=== PATIENT | female | born 1965 | race Caucasian/White ===

== ENCOUNTER 2017-08-12 07:14 | Observation (INO) | payer BC ==
[2017-08-10 16:31] LABS: BASOPHILS # (AUTO) 0.1 (0.0-0.1); EOSINOPHILS # (AUTO) 0.2 (0.0-0.4); EOSINOPHILS % 2.5 % (0.0-6.0); HEMATOCRIT 44.4 % (34.2-44.1); HEMOGLOBIN 15.1 g/dL (12.0-16.0); LYMPHOCYTES # (AUTO) 1.7 (1.0-3.2); LYMPHOCYTES % 23.5 % (18.0-39.1); MEAN CORPUSCULAR VOLUME 88.3 fL (81-99); MONOCYTES # (AUTO) 0.4 (0.2-0.8); MONOCYTES % 6.1 % (4.4-11.3); NEUTROPHILS # (AUTO) 4.8 (2.1-6.9); NEUTROPHILS % 66.6 % (38.7-80.0); PLATELET COUNT 342 x10e3/uL (140-360); RED BLOOD COUNT 5.03 x10e6/uL (3.6-5.1); RED CELL DISTRIBUTION WIDTH 12.7 % (11.7-14.4)
[2017-08-10 16:40] LABS: INR 1.09; PROTHROMBIN TIME 13.3 seconds (11.9-14.5)
[2017-08-10 16:41] LABS: PARTIAL THROMBOPLASTIN TIME 26.9 seconds (23.8-35.5)
[2017-08-10 16:45] LABS: ANION GAP 12.8 mmol/L (8-16); BLOOD UREA NITROGEN 17 mg/dL (7-26); BUN/CREATININE RATIO 18 (6-25); CALCIUM 9.8 mg/dL (8.4-10.2); CARBON DIOXIDE 25 mmol/L (22-29); CHLORIDE 103 mmol/L (98-107); CREATININE, SERUM 0.92 mg/dL (0.57-1.11); EST GLOMERULAR FILTRATION RATE > 60 ML/MIN (60-); GLUCOSE 142 mg/dL (74-118); POTASSIUM 3.8 mmol/L (3.5-5.1); SODIUM 137 mmol/L (136-145)
--- NOTE | 2017-08-10 20:52 | Diagnostic Imaging Report ---
PROCEDURE: Frontal and lateral views of the chest. COMPARISON: None. INDICATIONS: pre-op, denies chest complaints FINDINGS: Lines/tubes: None. Lungs: The lungs are well inflated and clear. There is no evidence of pneumonia or pulmonary edema. Pleura: There is no pleural effusion or pneumothorax. Heart and mediastinum: The heart and the mediastinum are normal. Bones: No acute bony abnormality. IMPRESSION: 1. No acute cardiopulmonary abnormalities. Jorge L Bates M.D. Dictated by: Jorge L Bates M.D. on 08/10/2017 at 16:43 Electronically approved by: Jorge L Bates M.D. on 08/10/2017 at 16:43
[~2017-08-12] VITALS: Ht 172.7 cm; Wt 121.6 kg
[~2017-08-12 07:14] MED LIST: ACETAMINOPHEN 1000 MG/100 ML 100 ML IV ONE; BACITRACIN 50,000 UNIT VIAL ONE; BUPIVACAINE 0.5%/EPI 30 ML SDV INJ ONE; FLECAINIDE ACE100 MG PO; LIDOCAINE HCL (LTA) 4 ML SOLN ONE; METOPROLOL SUCC50 MG PO; PRADAXA150 MG PO; THROMBIN FOR SOLN 5,000 UNIT VIAL ONE
[2017-08-12] MEDS ORDERED: GELATIN SPONGE 12-7MM ONE ×2 (07:31→08:00)
[2017-08-12] MEDS ORDERED: CEFAZOLIN SOD 2 GM/D5W 50ML 50 ML IV ONE (08:10)
[2017-08-12] MEDS: LACTATED RINGER'S 1,000 ML IV SCH ×2 (10:41→19:01)
[2017-08-12] MEDS ORDERED: ZOLPIDEM TARTRATE 5 MG TAB PO PRN (10:45)
[2017-08-12] MEDS ORDERED: MAGNESIUM/ALUMINUM/SIMETHICONE 30 ML UDC PO PRN (10:45)
[2017-08-12] MEDS ORDERED: PROMETHAZINE HCL (IM) 25 MG/ML VIAL IM PRN (10:45)
[2017-08-12] MEDS ORDERED: ONDANSETRON HCL INJ 2 MG/ML VIAL IV PRN (10:45)
[2017-08-12] MEDS ORDERED: ACETAMINOPHEN 325 MG TAB PO PRN (10:45)
[2017-08-12] MEDS ORDERED: MORPHINE SULFATE INJ 4 MG/ML INJ IM PRN (10:45)
[2017-08-12] MEDS ORDERED: OXYCODONE/ACETAMINOPHEN 5-325 1 EACH TABLET PO PRN (10:45)
[2017-08-12] MEDS ORDERED: CARISOPRODOL 350 MG TAB PO PRN (10:45)
[2017-08-12] MEDS ORDERED: HYDROMORPHONE 2MG/ML INJ IV PRN ×2 (10:45)
[2017-08-12] MEDS ORDERED: CEPACOL SORE THROAT LOZENGES PO PRN (10:45)
[2017-08-12] MEDS ORDERED: FENTANYL CITRATE/PF 100MCG/2 ML INJ ONE ×2 (11:07→18:44)
--- NOTE | 2017-08-12 11:29 | Operative Report ---
DATE OF PROCEDURE: August 12, 2017 PREOPERATIVE DIAGNOSIS: Right L4-5 disk herniation with inferior migration of the extruded disk fragment, M51.16. POSTOPERATIVE DIAGNOSIS: Right L4-5 disk herniation with inferior migration of the extruded disk fragment, M51.16. PROCEDURE: Right L4-5 laminotomy, medial facetectomy, and microsurgical diskectomy, [id number]. ANESTHESIA: General. INDICATIONS: Patient is a 52-year-old woman who presents with a right L4-5 disk herniation with inferior migration of the extruded disk fragment into the right L5 lateral recess, symptomatic with severe right L5 radiculopathy. She was taken to the operating room for microsurgical diskectomy. PROCEDURE: After induction of general anesthesia, the patient was placed on the operating table in prone position over a Alejo frame. Lumbar region was prepped and draped in a sterile fashion. A preoperative x-ray was obtained. A midline incision was created. Lumbar fascia was opened to the right of the midline, and subperiosteal dissection was carried out to expose the right side of the L4 and L5 laminae and the medial aspect of the facet joint. A 2nd x-ray confirmed correct localization. The operating microscope was brought in. A high-speed drill equipped with a jorge bur was used to drill the inferior aspect of lamina of L4 and the medial rim of the L4-5 facet joint. The ligamentum flavum was resected. The dural sac and the L5 nerve root were exposed. The upper aspect of the L5 lamina was resected. The axilla of the nerve root was exposed. The epidural veins lateral to the nerve root were bipolar coagulated and divided with microscissors. The herniated disk material came into view inferior to the disk space and markedly compressing the L5 nerve root. This was mobilized with a microball probe and grasped with a micro-pituitary rongeur and removed as several large fragments of disk until the L5 nerve root was fully exposed and decompressed. Meticulous hemostasis was secured. A piece of Gelfoam was placed in the lateral recess to maintain hemostasis of the epidural veins. The disk space itself was examined. The annulus of the disk was fairly intact with no visible opening in it. There was no significant bulging of the annulus. Therefore, the contents of the L4-5 disk were not disturbed. The wound was irrigated with Bacitracin solution and closed in multiple layers with #0 and 2-0 Vicryl sutures. The skin was closed with 3-0 Monocryl sutures in subcuticular fashion. Steri-Strips and dressing were applied. The patient was awakened, extubated and taken to the postanesthesia care unit in stable condition. No intraoperative complications were encountered. Estimated blood loss was less than 10 mL. Job#: [id number]
[2017-08-12 12:27] VITALS: BP 162/70
[2017-08-12 12:45] VITALS: BP 162/70
[2017-08-12 12:46] VITALS: BP 162/70
[2017-08-12] MEDS ORDERED: HYDROMORPHONE 1MG/1ML INJ IV PRN (13:30)
[2017-08-12] MEDS ORDERED: CEFAZOLIN SOD 1 GM/D5W 50ML 50 ML IV SCH (14:00)
[2017-08-12 15:17] VITALS: BP 162/77
[2017-08-12] MEDS: CEFAZOLIN SOD 1 GM/D5W 50ML 50 ML IV SCH ×2 (16:47→23:50)
[2017-08-12] MEDS: METOPROLOL SUCCINATE 50 MG TAB XL PO SCH (17:23)
[2017-08-12] MEDS: FLECAINIDE ACETATE 100 MG TAB PO SCH (17:23)
[2017-08-12] MEDS ORDERED: MIDAZOLAM HCL 2 MG/2 ML VIAL ONE (18:44)
[2017-08-12] MEDS ORDERED: DEXAMETHASONE SOD PHOS INJ 4 MG/ML VIAL ONE (19:17)
[2017-08-12] MEDS ORDERED: PROPOFOL IV EMULSION 10 MG/ML 20 ML VIAL ONE (19:17)
[2017-08-12] MEDS ORDERED: ROCURONIUM BROMIDE 10 MG/ML 5ML VIAL ONE (19:17)
[2017-08-12] MEDS ORDERED: ACETAMINOPHEN 1000 MG/100 ML IV ONE (19:17)
[2017-08-12] MEDS ORDERED: ONDANSETRON HCL INJ 2 MG/ML VIAL ONE (19:17)
[2017-08-12] MEDS ORDERED: LIDOCAINE HCL 2% LOCAL INJ 5 ML SDV VIAL INJ ONE (19:17)
[2017-08-12] MEDS ORDERED: SEVOFLURANE INHAL SOLN 250 ML PEN BTL ONE (19:17)
[2017-08-12 20:00] VITALS: BP 131/82
[2017-08-13 00:30] VITALS: BP 140/79
[2017-08-13 04:37] VITALS: BP 131/63
[2017-08-13 08:00] VITALS: BP 133/60
[2017-08-13 11:11] VITALS: BP 133/60
[2017-08-13 11:29] VITALS: BP 130/58
[2017-08-13] MEDS: METOPROLOL SUCCINATE 50 MG TAB XL PO SCH (11:50)
[2017-08-13] MEDS: CEFAZOLIN SOD 1 GM/D5W 50ML 50 ML IV SCH (11:51)
[2017-08-13] MEDS: FLECAINIDE ACETATE 100 MG TAB PO SCH (12:03)
== END 2017-08-13 12:34 | disposition home or self-care (01) ==
LOC: OR 07:14 → PACU V 10:43 → IMCU 12:12
PROVIDERS: ADMIT Neurological Surgery; ATTEND Neurological Surgery
DX: M51.16 Intervertebral disc disorders with radiculopathy, lumbar region (principal); I10 Essential (primary) hypertension; I48.91 Unspecified atrial fibrillation; Z79.02 Long term (current) use of antithrombotics/antiplatelets; Z01.810 Encounter for preprocedural cardiovascular examination; Z01.812 Encounter for preprocedural laboratory examination; Z01.818 Encounter for other preprocedural examination
CPT/HCPCS: 36415; 63030; 71046; 72020; 80048; 85025; 85610; 85730; 86850; 86900; 88304; 93005; G0378 ×2; J1100; J1170; J2001; J2250; J2405

== ENCOUNTER → 2018-12-16 | Day surgery (SDC) | payer BC ==
[2018-12-15 09:07] LABS: BASOPHILS # (AUTO) 0.1 (0.0-0.1); BASOPHILS % 0.8 % (0.0-1.0); EOSINOPHILS # (AUTO) 0.2 (0.0-0.4); EOSINOPHILS % 2.7 % (0.0-6.0); HEMATOCRIT 43.7 % (34.2-44.1); HEMOGLOBIN 14.4 g/dL (12.0-16.0); LYMPHOCYTES # (AUTO) 1.6 (1.0-3.2); LYMPHOCYTES % 26.7 % (18.0-39.1); MEAN CORPUSCULAR HEMOGLOBIN 29.1 pg (28-32); MEAN CORPUSCULAR VOLUME 88.5 fL (81-99); MONOCYTES # (AUTO) 0.4 (0.2-0.8); MONOCYTES % 5.8 % (4.4-11.3); NEUTROPHILS # (AUTO) 3.8 (2.1-6.9); NEUTROPHILS % 63.8 % (38.7-80.0); PLATELET COUNT 306 x10e3/uL (140-360); RED BLOOD COUNT 4.94 x10e6/uL (3.6-5.1); RED CELL DISTRIBUTION WIDTH 12.4 % (11.7-14.4)
[2018-12-15 09:25] LABS: ANION GAP 13.2 mmol/L (8-16); CALCIUM 9.6 mg/dL (8.4-10.2); CREATININE, SERUM 0.97 mg/dL (0.57-1.11); POTASSIUM 4.2 mmol/L (3.5-5.1)
--- NOTE | 2018-12-15 09:41 | Diagnostic Imaging Report ---
Chest, 2 views, 12/15/2018. History: Preop, foot surgery. Comparison: 08/10/2017. Findings: The cardiomediastinal silhouette and pulmonary vasculature are within normal limits. The lungs are clear without evidence of consolidation or pleural effusion. Mild degenerative changes are present in the thoracic spine. There are no acute osseous or soft tissue abnormalities. Impression: No acute cardiopulmonary abnormality. Signed by: Shaquille Alexandre on 12/15/2018 9:38 AM
[~2018-12-16] MED LIST changes: -BACITRACIN 50,000 UNIT VIAL ONE; -BUPIVACAINE 0.5%/EPI 30 ML SDV INJ ONE; +BUPIVACAINE HCL 0.5% INJ 30 ML VIAL INJ ONE; +DEXAMETHASONE SOD PHOS INJ 4 MG/ML VIAL ONE; +FENTANYL CITRATE/PF 100MCG/2 ML INJ ONE; +GLYCOPYRROLATE INJ 1MG/ 5 ML SYR ONE; -LIDOCAINE HCL (LTA) 4 ML SOLN ONE; +LIDOCAINE HCL 2% LOCAL INJ 5 ML SDV VIAL INJ ONE; +LOVENOX60 MG/0.6 SC; +MIDAZOLAM HCL 2 MG/2 ML VIAL ONE; +NEOSTIGMINE 1 MG/ML 10ML VIAL ONE; +ONDANSETRON HCL INJ 2MG/ML 2ML 2 MG/ML VIAL ONE; +PROPOFOL IV EMULSION 10 MG/ML 20 ML VIAL ONE; +SEVOFLURANE INHAL SOLN 250 ML PEN BTL ONE; -THROMBIN FOR SOLN 5,000 UNIT VIAL ONE; +XARELTO10 MG PO
[2018-12-16] MEDS: CEFAZOLIN SOD 1 GM/NS 50ML 100 ML IV ONE (09:26)
[2018-12-16 11:50] VITALS: BP 142/80
--- NOTE | 2018-12-16 21:58 | Operative Report ---
DATE OF PROCEDURE: 12/16/2018 SURGEON: Godlen Sands DPM ROOM NUMBER: [facility]. PREOPERATIVE DIAGNOSIS: Plantar fasciitis, plantar calcaneal spur. POSTOPERATIVE DIAGNOSIS: Plantar fasciitis, plantar calcaneal spur. TITLE OF OPERATION: Endoscopic plantar fasciotomy of the left foot, resection of the heel spur, left foot. ANESTHESIA: General endotracheal. HEMOSTASIS: Left thigh tourniquet at 350 mmHg. PROCEDURE IN DETAIL: The patient was taken to the operating room in a mildly sedated state and placed on the operating table in supine position. Following induction of general anesthetic, the left lower extremity was elevated to 60 degrees to exsanguinate for inflating the pneumatic ankle tourniquet to 350 mmHg to create good hemostasis. Left lower extremity was placed on the operating table prior to performing the procedure. Procedure #1: The endoscopic plantar fasciotomy of the left foot. A medial stab incision was placed and utilizing a combination of fluoroscopy and endoscopic techniques. The medial and central bands of the plantar fascia were identified and elongated to remove pressure from the plantar fascia at its insertion of the calcaneus. The area was irrigated with copious amounts of sterile saline solution. The incision was then elongated in a curvilinear manner to isolate the spur itself. This was reflected on its medial border of all attachments and utilizing a power rasp. The heel spur was resected. The area was irrigated with copious amounts of sterile saline solution due to above bleeding. A TLS drain was installed. The bleeding was noted to be very minimal. The deep closure was 3-0 Vicryl, subcutaneous closure and skin closure was 4-0 nylon. The areas of surgery were blocked with 0.5 Marcaine and Decadron [place]. The appropriate mildly compressive dressings were applied and the patient left the operating room, vital signs stable in apparent satisfactory condition, having tolerated both anesthetic and procedure very well. Fluoroscopy was used to ensure appropriate bone removal. CARLOS ENRIQUE Mehta/HERNANDEZ /[id number]
== END | disposition home or self-care (01) ==
LOC: OR 08:25
PROVIDERS: ATTEND Podiatrist Foot Surgery
DX: M72.2 Plantar fascial fibromatosis (principal); M77.32 Calcaneal spur, left foot; M79.672 Pain in left foot; Z01.812 Encounter for preprocedural laboratory examination; Z01.811 Encounter for preprocedural respiratory examination; Z91.048 Other nonmedicinal substance allergy status; I48.91 Unspecified atrial fibrillation; I10 Essential (primary) hypertension
CPT/HCPCS: 28119; 36415; 71046; 76000; 80048; 85025; J0131; J0690; J1100; J2001; J2250; J2405; J2704; J2710; J3010; J3490

== ENCOUNTER 2022-05-21 07:17 | Observation (INO) | payer BC ==
[2022-05-19 09:20] LABS: BASOPHILS # (AUTO) 0.1 (0.0-0.1); BASOPHILS % 1.3 % (0.0-1.0); EOSINOPHILS # (AUTO) 0.3 (0.0-0.4); EOSINOPHILS % 5.2 % (0.0-6.0); HEMATOCRIT 45.2 % (34.2-44.1); HEMOGLOBIN 14.9 g/dL (12.0-16.0); LYMPHOCYTES # (AUTO) 1.4 (1.0-3.2); LYMPHOCYTES % 22.1 % (18.0-39.1); MEAN CORPUSCULAR HEMOGLOBIN 29.6 pg (28-32); MEAN CORPUSCULAR VOLUME 89.7 fL (81-99); MONOCYTES # (AUTO) 0.4 (0.2-0.8); MONOCYTES % 6.1 % (4.4-11.3); NEUTROPHILS # (AUTO) 4.1 (2.1-6.9); NEUTROPHILS % 65.1 % (38.7-80.0); PLATELET COUNT 295 x10e3/uL (140-360); RED BLOOD COUNT 5.04 x10e6/uL (3.6-5.1); RED CELL DISTRIBUTION WIDTH 12.5 % (11.7-14.4)
[2022-05-19 09:36] LABS: INR 1.01; PROTHROMBIN TIME 13.8 seconds (11.9-14.5)
[2022-05-19 09:37] LABS: PARTIAL THROMBOPLASTIN TIME 28.6 seconds (23.8-35.5)
[2022-05-19 09:41] LABS: ANION GAP 14.1 mmol/L (8-16); CALCIUM 9.6 mg/dL (8.4-10.2); CREATININE, SERUM 0.85 mg/dL (0.57-1.11); POTASSIUM 4.1 mmol/L (3.5-5.1)
[~2022-05-21] VITALS: Ht 172.7 cm; Wt 117.9 kg
[~2022-05-21 07:17] MED LIST changes: +BUPIVACAINE 0.5%/EPI 30 ML SDV INJ ONE; -BUPIVACAINE HCL 0.5% INJ 30 ML VIAL INJ ONE; +CEFAZOLIN SODIUM 2 GM ONE; -DEXAMETHASONE SOD PHOS INJ 4 MG/ML VIAL ONE; -FENTANYL CITRATE/PF 100MCG/2 ML INJ ONE; -GLYCOPYRROLATE INJ 1MG/ 5 ML SYR ONE; +HYDROCHLOROTH12.5 MG PO; +LACTATED RINGER'S 1,000 ML ONE; -LIDOCAINE HCL 2% LOCAL INJ 5 ML SDV VIAL INJ ONE; -MIDAZOLAM HCL 2 MG/2 ML VIAL ONE; -NEOSTIGMINE 1 MG/ML 10ML VIAL ONE; -ONDANSETRON HCL INJ 2MG/ML 2ML 2 MG/ML VIAL ONE; -PROPOFOL IV EMULSION 10 MG/ML 20 ML VIAL ONE; -SEVOFLURANE INHAL SOLN 250 ML PEN BTL ONE; +SUGAMMADEX SODIUM 200 MG/2 ML VIAL IV ONE; +THROMBIN FOR SOLN 5,000 UNIT VIAL ONE; +Vancomycin IV 1 GM VIAL ONE
[2022-05-21] MEDS ORDERED: HYDROCODON-ACE1 EA12 PO (09:42)
[2022-05-21] MEDS ORDERED: HYDROMORPHONE 2MG/ML 2 MG/ML ML IV PRN (09:45)
[2022-05-21] MEDS ORDERED: ACETAMINOPHEN 325 MG TAB PO PRN (09:45)
[2022-05-21] MEDS ORDERED: PROMETHAZINE HCL (IM) 25 MG/ML VIAL IM PRN (09:45)
[2022-05-21] MEDS ORDERED: ONDANSETRON HCL INJ 2MG/ML 2ML 2 MG/ML VIAL IV PRN (09:45)
[2022-05-21] MEDS ORDERED: MAGNESIUM/ALUMINUM/SIMETHICONE 30 ML UDC PO PRN (09:45)
[2022-05-21] MEDS ORDERED: CARISOPRODOL 350 MG TAB PO PRN (09:45)
[2022-05-21] MEDS ORDERED: Morphine 4mg INJECTION 4 MG/ML INJ IM PRN (09:45)
[2022-05-21] MEDS ORDERED: ZOLPIDEM TARTRATE 5 MG TAB PO PRN (09:45)
[2022-05-21] MEDS ORDERED: OXYCODONE/ACETAMINOPHEN 5-325 1 EACH TABLET PO PRN (11:45)
[2022-05-21] MEDS: LACTATED RINGER'S 1,000 ML IV SCH ×3 (12:18→22:51)
[2022-05-21 12:27] VITALS: BP 158/76
[2022-05-21] MEDS ORDERED: FENTANYL CITRATE/PF 100MCG/2 ML INJ ONE (12:37)
[2022-05-21] MEDS ORDERED: DEXAMETHASONE SOD PHOS INJ 4 MG/ML SDV ONE (13:33)
[2022-05-21] MEDS ORDERED: POVIDONE IODINE 0.05% 0.05 % ML PO ONE (13:33)
[2022-05-21] MEDS ORDERED: SEVOFLURANE INHAL SOLN 250 ML PEN BTL ONE (13:33)
[2022-05-21] MEDS ORDERED: KETOROLAC TROMETHAMINE 30 MG/ML VIAL ONE (13:33)
[2022-05-21] MEDS ORDERED: LIDOCAINE HCL 2% LOCAL INJ 5 ML SDV VIAL INJ ONE (13:33)
[2022-05-21] MEDS ORDERED: PROPOFOL IV EMULSION 10 MG/ML 20 ML VIAL ONE (13:33)
[2022-05-21] MEDS ORDERED: ONDANSETRON HCL INJ 2MG/ML 2ML 2 MG/ML VIAL ONE (13:33)
[2022-05-21 16:00] VITALS: BP 168/87
[2022-05-21] MEDS ORDERED: FLECAINIDE ACETATE 100 MG TAB PO SCH (17:00)
[2022-05-21] MEDS ORDERED: METOPROLOL SUCCINATE 50 MG TAB XL PO SCH (17:00)
[2022-05-21 20:00] VITALS: BP 149/68
[2022-05-21] MEDS: OXYCODONE/ACETAMINOPHEN 5-325 1 EACH TABLET PO PRN ×2 (20:40→23:56)
[2022-05-21] MEDS: METOPROLOL SUCCINATE 50 MG TAB XL PO SCH (20:40)
[2022-05-21] MEDS: FLECAINIDE ACETATE 100 MG TAB PO SCH (20:41)
[2022-05-22] VITALS: BP 142/63
[2022-05-22 04:00] VITALS: BP 147/65
[2022-05-22 08:17] VITALS: BP 149/63
[2022-05-22] MEDS ORDERED: HYDROCHLOROTHIAZIDE 25 MG TAB PO SCH (09:00)
[2022-05-22] MEDS: FLECAINIDE ACETATE 100 MG TAB PO SCH (09:00)
[2022-05-22] MEDS: METOPROLOL SUCCINATE 50 MG TAB XL PO SCH (09:00)
== END 2022-05-22 11:03 | disposition home or self-care (01) ==
LOC: OR 07:17 → PACU V 09:41 → MED/SURG 11:20
PROVIDERS: ADMIT Neurological Surgery; ATTEND Neurological Surgery
DX: M51.16 Intervertebral disc disorders with radiculopathy, lumbar region (principal); I48.91 Unspecified atrial fibrillation; I10 Essential (primary) hypertension; Z71.82 Exercise counseling; Z71.3 Dietary counseling and surveillance; Z91.048 Other nonmedicinal substance allergy status; Z01.810 Encounter for preprocedural cardiovascular examination; Z01.812 Encounter for preprocedural laboratory examination; Z01.818 Encounter for other preprocedural examination; Z20.822 Contact with and (suspected) exposure to COVID-19; Z79.02 Long term (current) use of antithrombotics/antiplatelets; Z79.899 Other long term (current) drug therapy; Z68.39 Body mass index [BMI] 39.0-39.9, adult
CPT/HCPCS: 0223U; 36415; 63047; 63048; 71046; 72020; 80048; 85025; 85610; 85730; 86850; 86900; 88304; 88311; 93005; G0378 ×2; J0131; J0690 ×2; J1100; J1170; J1885; J2001; J2405; J2704; J3010; J3370; J7121